=== PATIENT | male | born 2000 | race Asian ===

== ENCOUNTER 2018-02-18 13:01 | Emergency (ER) | payer OTHER ==
[~2018-02-18] VITALS: Ht 175.3 cm; Wt 0.5 kg
[2018-02-18 13:15] VITALS: TEMP 98.1
[2018-02-18 13:45] VITALS: BP 130/71
== END 2018-02-18 13:53 | disposition home or self-care (01) ==
LOC: ED 13:01
PROC: 2W3RX1Z Immobilization of Left Lower Leg using Splint (ICD-10-PCS; principal; 2018-02-18)
DX: S82.55XA Nondisplaced fracture of medial malleolus of left tibia, initial encounter for closed fracture (principal); X50.1XXA Overexertion from prolonged static or awkward postures, initial encounter; Y93.67 Activity, basketball; Y92.219 Unspecified school as the place of occurrence of the external cause
CPT/HCPCS: 99283; L4350